=== PATIENT | female | born 1985 | race Caucasian/White ===

== ENCOUNTER → 2017-08-16 | Emergency (ER) | payer OTHER ==
[~2017-08-16] VITALS: Ht 177.8 cm; Wt 71.2 kg
[~2017-08-16] MED LIST: PROGESTERONE100 MG
== END | disposition home or self-care (01) ==
LOC: ER 19:05
DX: Z34.81 Encounter for supervision of other normal pregnancy, first trimester (principal); O20.0 Threatened abortion

== ENCOUNTER 2021-02-26 13:46 | Outpatient (CLI) | payer OTHER | END 2021-02-26 15:30 | disposition home or self-care (01) | LOC: PRENATAL 13:46 | PROVIDERS: ATTEND Obstetrics & Gynecology Maternal & Fetal Medicine | DX: O35.0XX1 Maternal care for (suspected) central nervous system malformation in fetus, fetus 1 (principal); O35.3XX1 Maternal care for (suspected) damage to fetus from viral disease in mother, fetus 1; O98.512 Other viral diseases complicating pregnancy, second trimester; Z36.89 Encounter for other specified antenatal screening; Z3A.26 26 weeks gestation of pregnancy ==